=== PATIENT | male | born 2000 | race African-American/Black ===

== ENCOUNTER 2025-06-29 01:47 | Emergency (ER) | payer MEDICAID ==
[~2025-06-29] VITALS: Ht 167.6 cm; Wt 83.0 kg
[2025-06-29 01:54] VITALS: O2SAT 98
[2025-06-29] MEDS: LIDOCAINE HCL 1% 20ML VIAL INFIL ONE (02:15)
[2025-06-29] MEDS: TETANUS, DIPHTHERIA, PERTUSSIS VAC/PF 0.5ML (>10YR OLD) IM ONE (02:15)
[2025-06-29] MEDS ORDERED: CEPH500C2 MT (03:22)
[2025-06-29 03:36] VITALS: BP 132/80; PULSE 90; RESP 16; TEMP 37.1; O2SAT 99
== END 2025-06-29 03:38 | disposition home or self-care (01) ==
LOC: ER 01:47
DX: S61.411A Laceration without foreign body of right hand, initial encounter (principal); W54.0XXA Bitten by dog, initial encounter; Y93.89 Activity, other specified; Y92.89 Other specified places as the place of occurrence of the external cause; Y99.8 Other external cause status
CPT/HCPCS: 90715; 12002; 90471; 99283; J2003; Z7610 ×2

== ENCOUNTER 2025-07-14 07:43 | Emergency (ER) | payer MEDICAID ==
[~2025-07-14] VITALS: Ht 167.6 cm; Wt 82.0 kg
[~2025-07-14 07:43] MED LIST: CEPH500C2 MT
[2025-07-14 07:52] VITALS: O2SAT 99
[2025-07-14 07:54] VITALS: BP 122/80; PULSE 67; RESP 16; TEMP 37; O2SAT 100
== END 2025-07-14 08:39 | disposition home or self-care (01) ==
LOC: ER 07:43
DX: S61.411D Laceration without foreign body of right hand, subsequent encounter (principal); Z79.899 Other long term (current) drug therapy; X58.XXXD Exposure to other specified factors, subsequent encounter
CPT/HCPCS: 99281; Z7610